=== PATIENT | male | born 1995 | race Caucasian/White ===

== ENCOUNTER 2023-04-23 13:57 | Emergency (ER) | payer OTHER ==
[2023-04-23 14:25] VITALS: BP 137/73; O2SAT 100
[2023-04-23] MEDS: BUFFERED LIDOCAINE 10 ML SYRINGE SUBQ STA (14:31)
--- NOTE | 2023-04-23 14:45 | ED Physician Documentation ---
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 He felt a puncture wound on the right forearm at work just prior to arrival and feels like there may be a foreign body of unknown composition and there, wood or metal?. He is up-to-date on tetanus. PD PAST MEDICAL HISTORY - Past Medical History Past Medical History: No - Past Surgical History Past Surgical History: Yes HEENT: Tonsil/Adenoidectomy - Present Medications Home Medications: Ambulatory Orders Medication Instructions Recorded Confirmed No Known Home Medications 04/23/23 04/23/23 - Allergies Allergies/Adverse Reactions: Allergies Allergy/AdvReac Type Severity Reaction Status Date / Time No Known Drug Allergies Allergy Verified 04/23/23 14:18 - Social History Does the pt smoke?: No Smoking Status: Never smoker Does the pt drink ETOH?: No - Immunizations Immunizations: TDAP current <10years PD ED PE NORMAL - Vitals Vital signs reviewed: Yes - General General: Alert and oriented X 3, No acute distress - Extremities Extremities: Other (There is a very small puncture wound on the mid medial anterior forearm that is not tender with no obvious foreign body in it.) - Neuro Neuro: Alert and oriented X 3, Normal speech Results - Vitals Vitals: Vital Signs - 24 hr 04/23/23 14:13 Temperature 36.2 C L Heart Rate 85 Respiratory 16 Rate Blood Pressure 137/73 H O2 Saturation 100 Oxygen O2 Source Room air - Rads (name of study) R forearm XR Relevant Findings:: Final report received, EMP independent interpretation of test PD Medical Decision Making - ED course ED course: He has a foreign body potentially from a puncture wound in the right forearm. We discussed options including initial radiography, watchful waiting, or incision and he opted for the latter. The area was prepped with iodine and draped and locally infiltrated with buffered lidocaine. A small incision was made with a 15 blade scalpel and explored at length without obvious foreign b winsome. It was closed with 1 x 4-0 nylon suture. Subsequently I did obtain an x-ray which does show a deep but small metallic foreign body, probably a little piece of wire it looks like to me. At that point since I had already not been able to get it, I recommended watchful waiting, my suspicion is this is too small to really be bothersome to him but he was given close return precautions. Departure - Departure Disposition: 01 Home, Self Care Clinical Impression: Metal foreign body in forearm Condition: Good Record reviewed to determine appropriate education?: Yes Instructions: ED Foreign Body Soft Tissue Comments: As discussed, there is a small metallic foreign body, looks like a little piece of wire in your forearm that we were unable to retrieve. My suspicion is this will never bother you. 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 Discharge Date/Time: 04/23/23 15:06
--- NOTE | 2023-04-23 15:26 | XRAY Report ---
PROCEDURE: Forearm RT INDICATIONS: puncture wound, poss fb TECHNIQUE: 2 views of the forearm were acquired. COMPARISON: None. FINDINGS: Bones: No fractures or dislocations. No suspicious bony lesions. Soft tissues: No suspicious soft tissue calcifications or masses. Tiny foreign body, ulnar aspect o f right forearm subjacent to the wound site, potentially in the deep subcutaneous tissues at the leve l of the mid shaft of the ulna. IMPRESSION: Tiny radiopaque foreign body. Reviewed by: Jimenez Argueta MD on 04/23/2023 3:25 PM PST Approved by: Jimenez Argueta MD on 04/23/2023 3:25 PM PST Station ID: [id number]
== END 2023-04-23 15:06 | disposition home or self-care (01) ==
LOC: ED 13:57
DX: S51.841A Puncture wound with foreign body of right forearm, initial encounter (principal); W22.8XXA Striking against or struck by other objects, initial encounter; Y99.1 Military activity
CPT/HCPCS: 10120; 99283